=== PATIENT | female | born 1940 | race Caucasian/White ===

== ENCOUNTER → 2017-04-17 | Outpatient (CLI) | payer MEDICARE, BC ==
[~2017-04-17] MED LIST: B-12500 MCG PO; CALCIUM 1,0001 EACH PO; DIOVAN HCT 160/1 TAB PO; FENOFIBRATE160 MG PO; FLONASE ALLERG9.9 ML; HYZAAR 100-12.51 TAB PO; LIPITOR PO; LOSARTAN-HCTZ1 EACH PO; MULTI VITAMIN1 EACH PO; NEXIUM 24HR22.3 MG PO; NEXIUM PO; NIACIN500 M3 PO; PRILOSEC PO; PROTONIX PO; SIMVASTATIN40 MG PO; SYNTHROID25 MCG PO; VITAMIN D400 UNI2 PO; VOLTAREN75 MG PO; ZETIA PO; ZYRTEC PO; ZYRTEC10 M1 PO
--- NOTE | ~2017-04-17 | MY29 ---
[facility] A Service of [facility] RADIOLOGY TEXT RESULTS PATIENT: BRANT MOCK LOCATION: [facility] : 42 UNIT #: [id number] AGE: [address]: Zuly Watts MD SEX: F ORDER DR: [id number] [facility] [address] [place], [place] [address] [id number] O MR#: [id number] Acc #: [id number] NAME: BRANT MOCK : 1940 SEX: F STUDY DATE/TIME: 04/17/2017 9:16 UNIT: [facility] ROOM: STUDY DESCRIPTION: MY TITO SCREENING W/ CAD BILAT Attending Physician: Zuly Watts M.D. Referring Physician: Zuly Watts M.D. Ordering Physician: Zuly Watts M.D. Primary Care Physician: Zuly Watts M.D. MEDICAL IMAGING REPORT This report is preliminary unless electronic signature is present EXAM Digital screening mammogram 04/17/2017 HISTORY 76-year-old woman. Positive family history, aunt. Annual screen. COMPARISON Mammograms date to 04/27/2007 with most recent 04/14/2016. FINDINGS Digital imaging of each breast was completed utilizing a two-view examination of each breast in craniocaudal and mediolateral-oblique projections. Review and interpretation of digital mammograms include a second review in conjunction with FDA-approved CAD device. There is a normal parenchymal presentation bilaterally consistent with the patient's age. There are no breast masses imaged and no parenchymal asymmetry is visualized. There are no suspicious microcalcifications and I see no focal architectural disturbance. IMPRESSION Negative screening digital mammogram. One-year followup recommended. Patients over the age of 40 are entered into a reminder system with target due date for the next mammogram. A result letter will also be sent to the patient. BIRADS: 1 Negative Dictated by... Teja Reynaga M.D. THIS IS AN ELECTRONICALLY VERIFIED REPORT [facility] A Service of [facility] RADIOLOGY TEXT RESULTS PATIENT: BRANT MOCK LOCATION: [facility] : 42 UNIT #: [id number] AGE: [address]: Zuly Watts MD SEX: F ORDER DR: Teja Reynaga M.D. at 04/17/2017 1:10 PM RADHA/reina TD: 04/17/2017 12:46 JOB #: [id number] MEDICAL IMAGING REPORT Page 1 of 1 COPY
== END | disposition home or self-care (01) ==
LOC: CWCC 08:49
DX: Z12.31 Encounter for screening mammogram for malignant neoplasm of breast (principal); Z80.3 Family history of malignant neoplasm of breast
CPT/HCPCS: G0202

== ENCOUNTER → 2017-06-26 | Day surgery (SDC) | payer MEDICARE, BC ==
--- NOTE | ~2017-06-26 | OR ---
Unit #: [id number] #: [id number] Patient: BRANT MOCK [id number] [address] [address] [id number] O MR#: [id number] NAME: BRANT MOCK ROOM: Date of Procedure: 06/26/2017 Admission Date: 06/26/2017 Surgeon: Ozzy Correa M.D. : 1940 Attending Physician: Ozzy Correa M.D. Referring Physician: Ozzy Correa M.D. Primary Care Physician: Zuly Watts M.D. OPERATIVE REPORT PREOPERATIVE DIAGNOSES The patient has presented for surveillance colonoscopy. She has personal history of colon polyps. PROCEDURES PERFORMED Colonoscopy and polypectomy. POSTOPERATIVE DIAGNOSES 1. Single sessile polyp in the distal descending colon. The latter was removed using snare polypectomy. 2. Moderate sigmoid and descending colon diverticulosis. 3. Rest of the examination up to cecum and terminal ileum was normal. The quality of the prep was good. RECOMMENDATIONS 1. Follow up the results of polyp histology. 2. Consider repeat colonoscopy in 5 years. SEDATION USED MAC. DESCRIPTION OF PROCEDURE Following detailed explanation of potential risks and complications of a colonoscopy, namely perforation, bleeding, and complication related to sedation, the patient was brought to GI lab and laid in the left lateral decubitus position. A digital rectal examination was performed, which was normal. Lubricated tip of the Olympus video colonoscope was inserted through the anus and advanced under direct vision. The scope was advanced past rectosigmoid into descending colon. Multiple medium-sized diverticula were noted in this area. The scope tip was then navigated all the way up to cecum with visualization of the ileocecal valve and the appendiceal orifice. Preparation was good with good visualization and photodocumentation was obtained. Last few inches of the terminal ileum were also visualized after intubation of the ileocecal valve and appeared normal. Successive segments of the colonic mucosa were examined upon withdrawal. A single sessile polyp was noted in the distal descending colon. This was about 6 mm in size. It was removed using snare polypectomy. It was retrieved and sent for histology. Excellent hemostasis was achieved and photodocumentation was obtained. No additional polyps were noted. Other than the left-sided diverticula, no other abnormalities were found. The patient did not have any internal hemorrhoids at the anal verge. The scope was then withdrawn and the Unit #: [id number] #: [id number] Patient: BRANT MOCK patient returned to the recovery area. She tolerated the procedure without any postprocedure complications. Dictated by... Derian Pelayo/chari TD: 06/26/2017 11:00 JOB #: [id number] OPERATIVE REPORT Page 1 of 1 X Ozzy Correa MD X PROCEDURE OPERATIVE NOTE
== END | disposition home or self-care (01) ==
LOC: COPS 06:42
PROVIDERS: Internal Medicine Gastroenterology
PROC: 0DBM8ZX Excision of Descending Colon, Via Natural or Artificial Opening Endoscopic, Diagnostic (ICD-10-PCS; principal; 2017-06-26 08:00)
DX: Z12.11 Encounter for screening for malignant neoplasm of colon (principal); D12.4 Benign neoplasm of descending colon; K57.30 Diverticulosis of large intestine without perforation or abscess without bleeding; I10 Essential (primary) hypertension; K21.9 Gastro-esophageal reflux disease without esophagitis; E78.5 Hyperlipidemia, unspecified; M19.90 Unspecified osteoarthritis, unspecified site; J30.2 Other seasonal allergic rhinitis; Z79.899 Other long term (current) drug therapy; Z98.51 Tubal ligation status; Z91.013 Allergy to seafood; Z98.890 Other specified postprocedural states
CPT/HCPCS: 88305